=== PATIENT | male | born 1995 | race Caucasian/White ===

== ENCOUNTER 2021-09-03 17:55 | Emergency (ER) | payer OTHER, BC ==
[~2021-09-03] VITALS: Ht 175.3 cm; Wt 73.5 kg
[2021-09-03 18:00] VITALS: BP_SYST 122
[2021-09-03 18:22] VITALS: BP_SYST 183
[2021-09-03] MEDS ORDERED: BACITRACIN 1 GM OINT TP ONE (18:32)
[2021-09-03 19:33] VITALS: BP_SYST 108
[2021-09-03] MEDS ORDERED: DIPH-TET-PERTUS Vaccine 0.5 ML VIAL (ADACEL) I.M. ONE (20:00)
[2021-09-03] MEDS ORDERED: IBUP-1971 PO (20:11)
== END 2021-09-03 20:22 | disposition home or self-care (01) ==
LOC: SED 17:55
DX: S43.101A Unspecified dislocation of right acromioclavicular joint, initial encounter (principal); V18.0XXA Pedal cycle driver injured in noncollision transport accident in nontraffic accident, initial encounter; Y93.89 Activity, other specified; Y92.89 Other specified places as the place of occurrence of the external cause; Y99.8 Other external cause status
CPT/HCPCS: 73030; 90715; 99283

== ENCOUNTER 2022-12-07 18:09 | Emergency (ER) | payer BC, OTHER ==
[~2022-12-07] VITALS: Ht 175.3 cm; Wt 70.3 kg
[~2022-12-07 18:09] MED LIST: IBUP-1971 PO
[2022-12-07 18:10] VITALS: BP_SYST 127
[2022-12-07] MEDS ORDERED: BACITRACIN 1 GM OINT TP ONE ×2 (19:13→19:15)
[2022-12-07 19:30] VITALS: BP_SYST 124
== END 2022-12-07 19:30 | disposition home or self-care (01) ==
LOC: SED 18:09
DX: S81.812A Laceration without foreign body, left lower leg, initial encounter (principal); Z79.899 Other long term (current) drug therapy; V00.131A Fall from skateboard, initial encounter; Y93.51 Activity, roller skating (inline) and skateboarding; Y92.89 Other specified places as the place of occurrence of the external cause; Y99.8 Other external cause status
CPT/HCPCS: 99282

== ENCOUNTER 2022-12-17 16:55 | Emergency (ER) | payer OTHER ==
[~2022-12-17] VITALS: Ht 175.3 cm; Wt 70.3 kg
[2022-12-17 16:55] VITALS: BP_SYST 129
--- NOTE | 2022-12-17 16:55 | NUR ---
BROUGHT BACK TO BED IN HALLWAY AND TRIAGED, REPORT GIVEN TO ESTER
--- NOTE | 2022-12-17 17:15 | NUR ---
ER DR. BECK AT THE BEDSIDE FOR SUTURE REMOVAL, PT TOLERATING WELL
[2022-12-17 17:33] VITALS: BP_SYST 129
--- NOTE | 2022-12-17 17:33 | NUR ---
Patient given written and verbal discharge instructions and verbalizes understanding. ER MD discussed with patient the results and treatment provided. Patient in stable condition. ID arm band removed. NO Rx given. Patient educated on pain management and to follow up with PMD. Pain Scale 0/10. Opportunity for questions provided and answered. Medication side effect fact sheet provided.
== END 2022-12-17 17:33 | disposition home or self-care (01) ==
LOC: SED 16:55
DX: Z48.02 Encounter for removal of sutures (principal); Z79.899 Other long term (current) drug therapy
CPT/HCPCS: 99281